=== PATIENT | female | born 1950 | race Caucasian/White ===

== ENCOUNTER 2023-11-10 13:31 | Day surgery (SDC) | payer MEDICARE, BC ==
[2023-11-10] VITALS (18 sets, daily range): BP systolic 118–173; BP diastolic 58–81; PULSE 62–74; RESP 14–21; TEMP 98.8; O2SAT 90–98
[~2023-11-10] VITALS: Ht 160 cm; Wt 62.1 kg
[2023-11-10] MEDS: cefazolin 2gm/D5W 100mL 100 ML IV ONE (05:30)
[~2023-11-10 13:31] MED LIST: ALLO300T8 PO; ESTR42.510 VG; EZET10TA48 PO; LISI10TA27 PO
[2023-11-10] MEDS: famotidine 20mg tablet PO ONE (14:15)
[2023-11-10] MEDS: INDOCYANINE GREEN 25 MG/10 ML VIAL IV ONE (14:15)
[2023-11-10] MEDS: ringers solution, lacted 1,000 ML IV SCH (14:15)
[2023-11-10 14:27] LABS: BASOPHILS % (AUTO) 0.5 % (0-1); EOSINOPHILS # (AUTO) 0.2 X10'3 (0-0.9); EOSINOPHILS % (AUTO) 2.4 % (0-6); LYMPHOCYTES # (AUTO) 1.9 X10'3 (1.1-4.8); MEAN CORPUSCULAR HEMOGLOBIN 27.7 PG (27.0-31.0); MEAN CORPUSCULAR HGB CONC 32.4 g/dL (33.0-36.5); MEAN CORPUSCULAR VOLUME 85.3 FL (78-98); MEAN PLATELET VOLUME 8.9 FL (7.4-10.4); MONOCYTES # (AUTO) 0.7 X10'3 (0-0.9); MONOCYTES % (AUTO) 8.5 % (2-12); NEUTROPHILS % (AUTO) 64.6 % (42-75); PRE OP HEMOGLOBIN 12.6 g/dL (12.0-16.0); PRE OP PLATELET COUNT 196 X10'3 (140-440); PRE OP WHITE BLOOD COUNT 7.7 10'3 (4.8-10.8); RED BLOOD COUNT 4.57 X10'6 (4.20-5.60); RED CELL DISTRIBUTION WIDTH 14.5 % (11.5-14.5)
[2023-11-10 15:15] LABS: ALBUMIN 3.9 G/DL (3.4-5.0); ALBUMIN/GLOBULIN RATIO 1.1 (1.1-1.5); ALKALINE PHOSPHATASE 46 IU/L (46-116); BLOOD UREA NITROGEN 10 MG/DL (7-18); BUN/CREATININE RATIO 25.6 (10.0-20.0); CALCIUM 8.7 MG/DL (8.5-10.1); CHLORIDE 104 MMOL/L (99-107); CREATININE 0.39 MG/DL (0.40-0.90); PRE OP ALT 32 U/L (30-65); PRE OP ANION GAP 11 (8-16); PRE OP AST 22 U/L (10-37); PRE OP BILIRUB, TOTAL 0.6 MG/DL (0.0-1.0); PRE OP GLUCOSE 87 MG/DL (70-104); PRE OP POTASSIUM 3.8 MMOL/L (3.4-5.1); PRE OP SODIUM 140 MMOL/L (135-145); TOTAL CARBON DIOXIDE 24.6 MMOL/L (24-32); TOTAL PROTEIN 7.3 G/DL (6.4-8.2); eCRCL 108 ML/MIN; eGFR > 90 ML/MIN
[2023-11-10] MEDS ORDERED: ringers solution, lacted 1,000 ML IV SCH (16:25)
[2023-11-10] MEDS ORDERED: morphine 4 MG/ML inj SYRINge IV PRN (16:25)
[2023-11-10] MEDS ORDERED: proCHLORperazine 10 MG/2 ml inj IV PRN (16:25)
[2023-11-10] MEDS ORDERED: morphine 2 MG/ML inj. syringe IV PRN (16:25)
[2023-11-10] MEDS ORDERED: meperidine/PF 25mg/ml syringe IV PRN ×2 (16:25)
[2023-11-10] MEDS ORDERED: BUPIVAcaine/PF 2.5mg/ml (0.25%) 10ml vial ONE (17:33)
[2023-11-10] MEDS ORDERED: LIDOcaine 1% (10mg/ml)w/preservative inj. 20ml MDV ONE (17:33)
[2023-11-10] MEDS ORDERED: sevoflurane 250ml liquid IH ONE (17:39)
[2023-11-10] MEDS ORDERED: fentaNYL/PF 50MCG/1 ML 2ML syringe ONE (17:42)
[2023-11-10] MEDS ORDERED: midazolam 1 mg/ML 2ml injection ONE (17:43)
[2023-11-10] MEDS ORDERED: rocuronium 10mg/ml inj IV ONE (18:52)
[2023-11-10] MEDS ORDERED: propofol inj 20 ML IV ONE (18:52)
[2023-11-10] MEDS ORDERED: ondansetron/PF 4mg/2ml inj ONE (18:52)
[2023-11-10] MEDS: BUPIVAcaine/PF 2.5mg/ml (0.25%) 10ml vial IJ ONE (19:05)
[2023-11-10] MEDS ORDERED: sugammadex 200mg/2ml injection IV ONE (19:08)
[2023-11-10] MEDS: ondansetron/PF 4mg/2ml inj IV PRN (20:00)
[2023-11-10] MEDS: meperidine/PF 25mg/ml syringe IV PRN (20:11)
[2023-11-10] MEDS: oxyCODONE/APAP 5-325mg tablet PO PRN (21:06)
== END 2023-11-10 22:03 | disposition home or self-care (01) ==
LOC: PRE-OP 13:31 → PAS 22:03
PROVIDERS: ATTEND Surgery
DX: K80.20 Calculus of gallbladder without cholecystitis without obstruction (principal); K42.0 Umbilical hernia with obstruction, without gangrene; I10 Essential (primary) hypertension; E11.9 Type 2 diabetes mellitus without complications; K21.9 Gastro-esophageal reflux disease without esophagitis; M10.9 Gout, unspecified; Z85.810 Personal history of malignant neoplasm of tongue; Z79.899 Other long term (current) drug therapy; Z90.710 Acquired absence of both cervix and uterus; Z98.890 Other specified postprocedural states; Z88.8 Allergy status to other drugs, medicaments and biological substances; Z82.49 Family history of ischemic heart disease and other diseases of the circulatory system
CPT/HCPCS: 36415; 47563; 49592; 80053; 85025; A4215; A4615; A4618; A7000; J0690; J2175; J2250; J2405; J2704; J3010; J3490; J7030; J7120; Z7506; Z7508; Z7512; Z7610